=== PATIENT | female | born 1990 | race African-American/Black ===

== ENCOUNTER 2024-06-14 08:43 | Outpatient (CLI) | payer BC ==
[2024-06-14] MEDS ORDERED: Iopamidol 370 76% 100 ML VIAL ONE (11:04)
== END 2024-06-14 08:44 | disposition home or self-care (01) ==
LOC: CSHRAD 08:43
PROVIDERS: ATTEND Obstetrics & Gynecology
DX: N97.9 Female infertility, unspecified (principal)
CPT/HCPCS: 58340; 74740; Q9967

== ENCOUNTER 2025-04-19 16:14 | Emergency (ER) | payer BC ==
[2025-04-19 18:00] LABS: #Basophils 0.04 10x3/uL (0.0-0.2); #Eosinophils 0.21 10x3/uL (0.0-0.5); #Monocytes 0.54 10x3/uL (0.0-1.1); #Neutrophils 4.19 10x3/uL (1.5-8.4); %Basophils 0.5 % (0.0-2.0); %Eosinophils 2.9 % (0.0-6.0); %Lymphocytes 31.6 % (18.0-47.0); %Monocytes 7.4 % (0.0-10.0); %Neutrophils 57.5 % (40.0-75.0); Hematocrit 33.7 % (34.9-44.5); Hemoglobin 11.3 g/dL (12.0-15.5); Mean Corpuscular Hemoglobin 30.6 pg (27.0-33.0); Mean Corpuscular Volume 91.3 fL (81.6-98.3); Platelet Count 287 10x3/uL (150-450); Red Blood Cell (RBC) Count 3.69 10x6/uL (3.90-5.03); White Blood Cell (WBC) Count 7.30 10x3/uL (3.5-10.5)
[2025-04-19 18:09] LABS: ALT (SGPT) 8 U/L (Less than 34); AST (SGOT) 22 U/L (11-34); Albumin 3.9 g/dL (3.1-4.5); Alkaline Phosphatase 70 U/L (40-110); Anion Gap 12 mmol/L (10-20); BUN (Urea Nitrogen) 8 mg/dL (7.0-18.7); Bilirubin, Total 0.3 mg/dL (0.3-1.2); Calc. Creatinine Clearance 0 mL/min (70-130); Calcium 9.5 mg/dL (7.8-10.44); Carbon Dioxide 25 mmol/L (22-29); Chloride 104 mmol/L (98-107); Globulin 3.4 g/dL (2.4-3.5); Glucose 82 mg/dL (70-105); Potassium 4.1 mmol/L (3.5-5.1); Sodium 137 mmol/L (136-145)
== END 2025-04-19 19:40 | disposition home or self-care (01) ==
LOC: CSHERS 16:14
DX: O20.0 Threatened abortion (principal); O99.011 Anemia complicating pregnancy, first trimester; O99.511 Diseases of the respiratory system complicating pregnancy, first trimester; J45.909 Unspecified asthma, uncomplicated; Z3A.01 Less than 8 weeks gestation of pregnancy
CPT/HCPCS: 36415; 76856; 80053; 84702; 85025